=== PATIENT | male | born 1955 | race Caucasian/White ===

== ENCOUNTER → 2019-09-03 13:23 | Outpatient (BNVA) | payer MEDICARE, SELFPAY | PROVIDERS: PCP Internal Medicine; Visit Provider Otolaryngology | DX: K14.8 Other diseases of tongue (principal) | CPT/HCPCS: 99204; 99214 ==

== ENCOUNTER 2019-09-21 07:57 | Outpatient (CLI) | payer MEDICARE, SELFPAY ==
--- NOTE | 2019-09-21 08:08 | CT_ITS ---
WS: [id number] CT scan of the neck. Additional two-dimensional coronal and sagittal reconstruction was performed. Clinical Data: NECK MASS, BASE OF TONGUE CANCER Comparison: None. DLP: 2933.[address] scans at [facility] use at least one of these dose optimization techniques: automat ed exposure control; mA and/or kV adjustment per patient size (includes targeted exams where dose is matched to clinical indication); or iterative reconstruction. Findings: No oral masses are seen. No abnormalities of the tongue are visible. No lymphadenopathy is noted. The salivary glands are unremarkable. There is no prevertebral soft tiss ue swelling. The larynx is symmetric. The thyroid gland shows normal enhancement. The floor of the mo uth and parapharyngeal spaces are normal. The oral cavity is unremarkable. The carotid arteries bifurcate normally. There is calcification at the origins of both internal carot id arteries. The cervical spine shows anterior osteoarthritic change from C3-C7 with disc space narro wing at C6-C7. There is posterior longitudinal ligament calcification at C6-C7. The lung apices show no abnormalities. The portions of the intracranial circulation which are seen demonstrate no abnormal ities. No erosion of the skull or skull base is seen. CT/CT neck w con* [id number] Impression: Negative CT scan of the neck. No oral or tongue abnormalities are seen.
[2019-09-21 08:56] LABS: Blood Urea Nitrogen 13 mg/dL (8-23)
[2019-09-21] MEDS: iohexol 300 mg/mL 100 mL Btl IV (09:04)
== END 2019-09-21 07:58 | disposition home or self-care (01) ==
LOC: RADWPI 08:03
PROVIDERS: Radiology Diagnostic Radiology; PCP Internal Medicine; Visit Provider Otolaryngology
DX: C01 Malignant neoplasm of base of tongue (principal); R22.1 Localized swelling, mass and lump, neck
CPT/HCPCS: 70491; 82565; 84520; Q9967

== ENCOUNTER 2019-11-01 10:03 | Outpatient (CLI) | payer MEDICARE, SELFPAY ==
--- NOTE | 2019-11-01 14:37 | N.ONRAD NP_ITS ---
Radiation Oncology New Patient Visit Patient: Jose Alberto Morin MR#: [id number] : 1955> Age: 64> Sex: Male> Dictated by: Dr. Babar Acevedo Date of Service: 11/01/2019 Referring Physician(s) : Dr. 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 Radiotherapy to date: Summary > No prior radiation therapy. 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 He underwent initial biopsy on September 10 followed by resection right neck dissection and radial artery mild cutaneous flap closure on October 16, 2019. We were asked to see him regarding the role of postoperative radiation therapy in his care. Beginning in the summer 2018 he had a crown replaced in his right mouth which resulted in a sharp edge along the tooth line. This caused an oval small ulceration in his right lateral tongue when rubbing on the teeth this was associated with pain it progressively got larger He was ultimately seen by Dr. Ifeanyi VANESSA in [facility] who noted that he had a ulcerated mass in the right tongue. Biopsy on September 13, 2019 revealed well-differentiated keratinizing squamous cell carcinoma. Due to his insurance he ultimately was seen in [facility] by Dr. Carlos Torres. By that time there was rapid growth in the ulcerative lesion associated with increasing pain. He ultimately underwent definitive surgical resection and right neck dissection on October 16, 2019 at that time he had a fascio cutaneous radial arm free flap for reconstruction of the right bashir glossectomy defect. He also had a tracheostomy placed and PEG tube placed at that time. He had a satisfactory surgical recovery and was hospitalized from October 15 through October 25, 2019. Pathology revealed invasive poorly differentiated squamous cell carcinoma measuring 4.6 x 3.6 cm with 11 mm of invasion initial margin and 5-6 o'clock was focally positive reexcision margin at the deep 6:00 margin was free of carcinoma right lymph right neck lymph node dissection from levels 1-3 and 4 revealed none 31 lymph nodes all clear of metastatic disease. Since surgery he is recovering he is able to drink water. A trial of soft food did lead to aspiration thus far. He has nutrition is now utilizing Jevity via his PEG tube. Overall he is improving. Tracheostomy is healing after trach tube was removed. He has no significant oral cavity or tongue pain. Notes less taste but not yet eating orally.. He is scheduled to see Dr. Torres in follow-up again on November 06, 2019. His locally advanced presentation of tongue carcinoma was presented to the tumor conference in [place] on October 22, 2019 at that time adjuvant radiation adjuvant postoperative radiation therapy was recommended. Current Medications: lisinopril Allergies: Penicillin V Potassium. Medical History: - Hypertension. No history of collagen vascular disease. No previous radiation therapy. Surgical History: Hernia repair Family History: Father is alive. Mother is . Brother is at age 61. Social History: Last screened on 11/01/2019 - Yes - but has quit for 21 years. Smoked 1.0 pack/day for less than one year. Last screened on 11/01/2019 - Drinks occasionally 4 drinks/day 7 days/week. Patient indicated use of the following products: chewing tobacco and cigarettes. Chewed tobacco for 7 years. ([id number]). Social history he lives independently alone. He was in 2004. He has 1 daughter with him now living in [place] currently with him for recovery support. He has another son living in [place]. 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 He is occasional drinker of beer. He renovated a house recently and enjoys gardening and woodworking. Current Complaints / Review of Systems: Constitutional - Complains of fatigue and change in weight in which he is down 30 lbs. in about 2 months time. Denies fever and night sweats. Patient is NPO at this time. Has a feeding tube and puts in 6 cans of Jevity. Eyes - Complains of blurred vision with small print. ENMT - Complains of mouth dryness occasionally. Denies dysphagia, ear pain, problems with hearing, stomatitis, altered taste and tinnitus. Neck - Complains of decreased range of motion. Denies neck pain and swelling of the neck. Integumentary - Has skin grafts on the left forearm and left thigh. Cardiovascular - Complains of edema in the left forearm and ankles. Denies arrhythmias and chest pain. Respiratory - Complains of cough in the mornings. Denies dyspnea, hemoptysis, hiccoughs and wheezing. Gastrointestinal - Denies abdominal pain, constipation, diarrhea, heartburn / dyspepsia, melena / GI bleeding, nausea and vomiting. Genitourinary (M) - Complains of nocturia gets up 4 to 5 times at night. Denies dysuria, frequency and urgency. Musculoskeletal - Denies bone pain, joint pain and muscle weakness. Neurologic - Complains of intermittent dizziness. Denies abnormal gait and headaches. Endocrine - Denies diabetes and thyroid disease. Hematologic/Lymphatic - Denies tender or enlarged lymph nodes.. Vital Signs: Performed on 11/01/2019 10:47 AM BMI - 48.516 kg/m2 (high), Height - 56.00 in, Weight - 216.4 lbs, Temperature - 98.2 f, Pulse - 82, Respiration - 18, O2 Sat - 97 %, Pain - 2 and BP - 122/ 73 mm(hg). Physical Exam: Pleasant gentleman in no acute distress. He had voice changes from his tethered tongue. H EENT examination revealed excellent dentition with stable restorations. Oral tongue revealed well vascularized flap with hair present with good healing along its periphery along the tongue border sutures remain in place Neck revealed healing surgical change in the right neck with no palpable adenopathy in either neck. Tracheostomy was closed down to a slit. Lungs clear to auscultation. Heart regular without murmur or gallop. Abdominal examination revealed healthy-appearing PEG tube in the central upper abdomen no hepatomegaly masses felt. Left arm was bandaged for healing from previous surgical harvesting. Left thigh was bandaged also for healing from previous split thickness graft harvesting. Performance Status: 2 - Ambulatory/capable of all self-care, unable to perform any work activities. Up and about more than 50% of waking hours. (ECOG) Pathology: See HPI Lab: No current lab seen at this evaluation. Imaging: Preoperative CT neck 09/21/2019 was unremarkable but metallic artifact in oral cavity obscured visualization of oral tongue. Small non pathologic sized lymph nodes in both neck regions on my review. Preoperative CT Chest 09/27/2019 mildly enlarged para tracheal lymph nodes to 1.2 cm in size with no clear evidence for metastatic disease and no lung nodules seen on my review. Impression: For pathologic st HIRAL(T4 N0 M0) grade 3 invasive squamous cell carcinoma of the right ventral oral tongue. He has undergone complete resection with vascular flap closure. He is week healing well postoperatively. I recommend a total of 4 to 6-week postoperative convalescence. Following this I recommend adjuvant radiation therapy T is tongue resection bed with generous margin. He has had high risk features for local recurrence that include tumor size high-grade histology and deep tongue invasion. I outlined the rationale for adjuvant radiation in his care with the patient and his daughter. He will return to Dr. Torres for follow-up as scheduled on November 05 we will anticipate scheduling him here for follow-up and simulation approximately 4 to 5 weeks from the time of surgery. Plan: Signed by: 11/01/2019 2:36:23 PM <<Signature on File>> Time spent with patient: 60 min CPT Code: CPT Code:
== END 2019-11-01 10:04 | disposition home or self-care (01) ==
PROVIDERS: PCP Internal Medicine; Referring Provider Otolaryngology; Visit Provider Radiology Radiation Oncology
DX: C02.9 Malignant neoplasm of tongue, unspecified (principal); Z98.890 Other specified postprocedural states
CPT/HCPCS: 99205

== ENCOUNTER 2019-11-28 09:07 | Outpatient (CLI) | payer MEDICARE, SELFPAY ==
--- NOTE | 2019-11-28 14:55 | ONCRAD EPV_ITS ---
Radiation Oncology Established Patient Visit Patient: Antwan MR#: [id number] : 1955> Age: 64> Sex: Male> Dictated by: Dr. Babar Acevedo Date of Service: 11/28/2019 Referring Physician(s) : Diagnosis: C02.9 - Malignant neoplasm of tongue, unspecified, Diagnosed 11/01/2019 (Active) Stage GARRETT, T4a, pN0, M0 Radiotherapy to Date: none Chief Complaint / History of Present Illness: He underwent right hemiglossectomy and left radial arm myocutaneous flap reconstruction on October 16, 2019. Since last seen in initial consultation here the swelling in his tongue is decreased he has less tingling at the tip of his tongue. He maintains his nutrition orally. His PEG tube is not used as yet. He had a follow-up with his plastic surgeon in the last week which was satisfactory. He notes that there is a ridge along the right tongue which interferes with his teeth on the right side. He has no oral cavity pain. Current Medications: Chlorhexidine Gluconate, lisinopril. Allergies: Penicillin V Potassium. Current Complaints / Review of Systems: Constitutional - Complains of night sweats which occur every night. Complains of change in weight in which he is down 13.8 lbs. since seen on 11/01/2019. Denies lack of appetite, fatigue and fever. Eyes - Denies blurred vision. ENMT - Complains of mouth dryness. Denies dysphagia, ear pain, problems with hearing, stomatitis, altered taste and tinnitus. Has been having tingling on the tongue off and on. Neck - Denies neck pain and decreased range of motion. Integumentary - Denies rash. Cardiovascular - Denies arrhythmias, chest pain and edema. Respiratory - Complains of cough occasionally. Denies dyspnea, hemoptysis, hiccoughs and wheezing. Gastrointestinal - Denies abdominal pain, constipation, diarrhea, heartburn / dyspepsia, melena / GI bleeding, nausea and vomiting. Genitourinary (M) - Complains of nocturia gets up about 3 times per night. Denies dysuria, frequency and urgency. Musculoskeletal - Denies bone pain, joint pain and muscle weakness. Neurologic - Denies dizziness, abnormal gait and headaches. Endocrine - Denies diabetes and thyroid disease. Hematologic/Lymphatic - Denies tender or enlarged lymph nodes.. Vital Signs: Performed on 11/28/2019 9:38 AM BMI - 45.422 kg/m2 (high), Height - 56.00 in, Weight - 202.6 lbs, Temperature - 97.7 f, Pulse - 90, Respiration - 18, O2 Sat - 97 %, Pain - 0 and BP - 143/ 80 mm(hg)(high/). Physical Exam: General: Alert and oriented x 3. No acute distress. H EENT examination revealed healthy-appearing myocutaneous flap in the right and central tongue. Swelling of the flap had decreased in size adjacent to the flap there was a ridge of mucosal tissue 2 cm by 0.3 cm firm and nontender. Neck revealed no palpable adenopathy. Abdominal examination revealed a healthy appearing PEG tube site. Tracheostomy site was nearly closed with a small area of granular tissue at the closed stoma site. Left forearm graft was well healed. Performance Status: Lab: None pending. Pathology: Primary, c02.9 - malignant neoplasm of tongue, unspecified, Diagnosed 11/01/2019 (active) stage garrett, t4a, pn0, m0. Impression: He has resected stage Garrett (T4 N0 M0) squamous cell carcinoma of the oral tongue. He is doing well postoperatively. I am concerned about the ridge of tissue now present in the right lateral tongue adjacent to the flap. This may reflect postoperative scarring alone yet it may reflect residual malignancy. At this time I recommend follow-up with his head and neck surgeon for reevaluation within the next week to assess the findings along the right lateral tongue. He will also return to his dentist for dental clearance and possible tooth extraction. We will to plan to have him return here on the week of December 09 for reassessment and possible simulation for the initiation of adjuvant radiation treatment. Signed by: 11/28/2019 1:09:12 PM <<Signature on File>> Time spent with patient: CPT Code: CPT Code:
== END 2019-11-28 09:08 | disposition home or self-care (01) ==
LOC: ONCMED 09:12
PROVIDERS: PCP Family Medicine; Visit Provider Radiology Radiation Oncology
DX: C02.9 Malignant neoplasm of tongue, unspecified (principal); K14.8 Other diseases of tongue
CPT/HCPCS: 99214

== ENCOUNTER 2019-12-25 06:51 | Outpatient (RCR) | payer MEDICARE, SELFPAY ==
--- NOTE | 2019-12-11 | CT_ITS ---
Radiation Therapy Planning CT images; total exam DLP: 902.65 mGy-cm MTDD
--- NOTE | 2019-12-11 17:51 | ONCRAD EPV_ITS ---
Radiation Oncology Established Patient Visit Patient: Antwan MR#: [id number] : 1955> Age: 64> Sex: Male> Dictated by: Dr. Kirk Yousif Date of Service: 12/11/2019 Referring Physician(s) : Diagnosis: C02.9 - Malignant neoplasm of tongue, unspecified, Diagnosed 11/01/2019 (Active) Stage HIRAL, T4a, pN0, M0 Radiotherapy to Date: none Chief Complaint / History of Present Illness: Mr. Morin saw Dr. Acevedo 11/28/2019. He was concerned about a ridge of tissue in the area of his oral cavity graft. In addition he wanted him to see his dentist for dental clearance prior to proceeding with simulation for radiation. Mr. Morin returned to Dr. Hu's office and had a biopsy of the indurated tissue performed. He informs us that result is negative. We will need to obtain the pathology report to confirm that. However, Mr. Morin is an excellent historian and I am sure that the result is negative. Mr. Morin saw his dentist and [place]. He was examined. He does not feel that any extractions are indicated. He is going to make fluoride trays tomorrow. He has also given the patient special toothpaste to use. Mr. Morin comes in at this time for simulation. Current Medications: Chlorhexidine Gluconate, lisinopril, multivitamin Adults. Allergies: Penicillin V Potassium. Current Complaints / Review of Systems: Constitutional - Denies lack of appetite, fatigue, fever, night sweats and change in weight. Eyes - Denies blurred vision. ENMT - Complains of mouth dryness occasionally at night. Denies dysphagia but has odynophagia, ear pain, problems with hearing, stomatitis, altered taste and tinnitus. Neck - Denies neck pain and decreased range of motion. Integumentary - Denies rash. Cardiovascular - Denies arrhythmias, chest pain and edema. Respiratory - Complains of cough occasionally. Denies dyspnea, hemoptysis, hiccoughs and wheezing. Gastrointestinal - Denies abdominal pain, constipation, diarrhea, heartburn / dyspepsia, melena / GI bleeding, nausea and vomiting. Genitourinary (M) - Denies dysuria, frequency and urgency. Musculoskeletal - Denies bone pain and joint pain. Neurologic - Denies dizziness and headaches. Endocrine - Denies diabetes and thyroid disease. Hematologic/Lymphatic - Denies tender or enlarged lymph nodes.. Vital Signs: Performed on 12/11/2019 2:26 PM BMI - 46.185 kg/m2 (high), Height - 56.00 in, Weight - 206.0 lbs, Temperature - 98.8 f, Pulse - 80, Respiration - 18, O2 Sat - 99 %, Pain - 0, Fatigue - 0 and BP - 143/ 91 mm(hg)(high). Physical Exam: General: Alert and oriented x 3. No acute distress. HEENT: Normocephalic, atraumatic. Extraocular Movements Intact: Oral cavity is clear without lesions, masses or ulcers. The graft involving the right two thirds of the anterior tongue appears healthy. No lesions seen or palpated. No suspicious induration detected today. The oropharynx was clear. NECK: Supple without supraclavicular or jugular lymphadenopathy. Surgical scar is well-healed. No lymphedema. Performance Status: 1 - No physically strenuous activity, but ambulatory and able to carry out light or sedentary work (e.g. office work, light house work). (ECOG) Lab: None pending. Pathology: Primary, c02.9 - malignant neoplasm of tongue, unspecified, Diagnosed 11/01/2019 (active) stage hiral, t4a, pn0, m0. Imaging: See HPI ImpReady to proceed with simulation. Mr. Morin ask about 4 weeks of radiation instead of 6 weeks . I discussed that we do not have data available to make a valid judgment of about the effectiveness of 4 weeks of radiation. I discussed with him that 6 weeks is the standard in this situation. I discussed the planned course of treatment. I discussed the immobilization with a mask and the simulation and treatment planning process. I then reviewed side effects in detail. I discussed the acute problems such as painful mucositis, xerostomia, and loss of taste. I discussed the gradual improvement of xerostomia in most patients. I discussed that taste typically improves more quickly. I discussed the risk of trismus. Also I reviewed the possibility of loss of range of motion in the neck requiring physical therapy. I discussed hypothyroidism. Mr. Morin wishes to proceed on with treatment. Simulation will be performed today Signed by: 12/11/2019 5:49:43 PM <<Signature on File>> Time spent with patient: CPT Code: CPT Code:
--- NOTE | 2019-12-25 13:26 | ONCRAD TMN_ITS ---
Radiation Oncology Weekly Treatment Management Patient: Jose Alberto Morin MR#: [id number] : 1955 Age: 64 Sex: Male Dictated by: Dr. Hakeem Yousif Date of Service: 12/25/2019 Referring Physician(s) : Diagnosis: C02.9 - Malignant neoplasm of tongue, unspecified, Diagnosed 11/01/2019 (Active) Stage HIRAL, T4a, pN0, M0 Radiotherapy to date: Course: HN 2019, Treatment Site: HN 44Gy, Ref. ID: [id number], Energy: 6X, Dose/Fx (cGy): 200, #Fx: , Dose Correction (cGy): 0, Total Dose (cGy): 1,200, Start Date: 12/17/2019, Elapsed Days: 8 Chief Complaint/History of Present Illness: Tumor dose 1200 cGy in 6 fractions. Mr. Mar is eating well. Taste has been altered since surgery because of the loss of a significant portion of his tongue. There has been no recent change. He is noticing dry mouth. This past weekend he had some discomfort with swallowing in the right side of his throat and also had pain deep to the right ear. The symptoms have diminished without intervention.. Also in palpating his neck he felt that an area of firmness had migrated posteriorly from the submental area. Current Medications: Chlorhexidine Gluconate, lisinopril, multivitamin Adults. Allergies: Penicillin V Potassium. Current Complaints/Review of Systems: Constitutional - Denies lack of appetite, fatigue, fever and night sweats. ENMT - Complains of dysphagia over the weekend on the right side. Feels a hard knot on the left lower jaw. Complains of ear pain on the right side. Complains of mouth dryness over the weekend and yesterday. Complains of altered taste to the right side of the tongue. Denies stomatitis. Neck - Denies neck pain and decreased range of motion. Integumentary - Has no redness to the neck. Respiratory - Denies hiccoughs. Vital Signs: Performed on 12/25/2019 11:55 AM BMI - 46.364 kg/m2 (high), Height - 56.00 in, Weight - 206.8 lbs, Temperature - 98.0 f, Pulse - 66, Respiration - 18, O2 Sat - 98 %, Pain - 4 and BP - 122/ 75 mm(hg). Physical Exam: Appears stable, no skin erythema or desquamation. No skin reaction at this time. He may have slightly more submental edema than he had prior to the start of treatment. The incisions on his right neck are intact. No lymphadenopathy or masses detected on palpation. Examination of the oral cavity reveals the graft to be stable. No mucositis, yeast or viral ulcerations seen. Performance Status: 1 - No physically strenuous activity, but ambulatory and able to carry out light or sedentary work (e.g. office work, light house work). (ECOG) Lab: None pending in Radiation Oncology. Imaging: No new diagnostic imaging was performed since the last weekly treatment visit. All radiation therapy related imaging (including but not limited to kV, MV, and CBCT generated images) was reviewed. Appropriate changes, if any, were made to assure accurate target localization. Impression/Plan: Tolerating treatment well with expected side effects. Continue treatment as planned. Discussed the risk of submental edema and fibrosis in the neck requiring physical therapy. For now he is satisfied providing his own physical therapy for the lymphedema. If he starts to lose ground, he will speak up for a referral. We discussed the anticipated sore throat and the difficulty with swallowing that may develop. He is aware of trying to keep up a good intake of calories and fluids. He has a feeding tube if needed. CPT: 24098 Signed by: Dr. Hakeem Yousif>12/25/2019 1:24:57 PM <<Signature on File>>
== END 2019-12-25 23:59 | disposition home or self-care (01) ==
LOC: ONCMED 06:51
PROVIDERS: PCP Family Medicine; Visit Provider Specialist
DX: Z51.0 Encounter for antineoplastic radiation therapy (principal); C02.9 Malignant neoplasm of tongue, unspecified; E03.9 Hypothyroidism, unspecified; I10 Essential (primary) hypertension
CPT/HCPCS: 77014; 77263; 77300; 77301; 77334; 77338; 77386

== ENCOUNTER 2020-01-25 06:51 | Outpatient (RCR) | payer MEDICARE, SELFPAY ==
--- NOTE | 2020-01-01 19:30 | ONCRAD TMN_ITS ---
Radiation Oncology Weekly Treatment Management Patient: Jose Alberto Morin MR#: [id number] : 1955 Age: 64 Sex: Male Dictated by: Dr. Master Maldonado Date of Service: 01/01/2020 Referring Physician(s) : Diagnosis: C02.9 - Malignant neoplasm of tongue, unspecified, Diagnosed 11/01/2019 (Active) Stage HIRAL, T4a, pN0, M0 Radiotherapy to date: Course: HN 2019, Treatment Site: HN 44Gy, Ref. ID: [id number], Energy: 6X, Dose/Fx (cGy): 200, #Fx: , Dose Correction (cGy): 0, Total Dose (cGy): 2,000, Start Date: 12/17/2019, Elapsed Days: 15 Chief Complaint/History of Present Illness: The patient reports that he is using his PEG tube and he is supplementing his meals with 3 cans of Jevity as well as Ensure. His weight is stable. He also reports xerostomia, and he feels like his tongue is swollen. The patient is concerned about his oral pain and he is currently managing this with ibuprofen. Furthermore, the patient shares that he wishes to discontinue radiotherapy. Current Medications: Chlorhexidine Gluconate, lisinopril, multivitamin Adults. Allergies: Penicillin V Potassium. Current Complaints/Review of Systems: Vital Signs: Physical Exam: Appears stable, no skin erythema or desquamation. . Oral cavity examination reveals no evidence of oral mucositis or oral thrush. Performance Status: 1 - No physically strenuous activity, but ambulatory and able to carry out light or sedentary work (e.g. office work, light house work). (ECOG) Lab: None pending in Radiation Oncology. Imaging: No new diagnostic imaging was performed since the last weekly treatment visit. All radiation therapy related imaging (including but not limited to kV, MV, and CBCT generated images) was reviewed. Appropriate changes, if any, were made to assure accurate target localization. Impression/Plan: Today, we had a rather candid discussion regarding the patient's initial desires to discontinue radiation therapy. The patient was informed that if he discontinues radiotherapy and does not complete its full course, he will put himself at significant risk for disease recurrence and reduce his expected overall survival. The patient shared that he would continue to consider further radiotherapy at the present time and decide at a later date if he will indeed cease treatment. He was offered opiate pain medication, but the patient declined and shared that he would prefer to continue taking ibuprofen twice per day. For the time being, we will continue treatment as planned. CPT: 32407 Signed by: Dr. Master Maldonado>01/01/2020 7:28:23 PM <<Signature on File>>
--- NOTE | 2020-01-08 16:51 | ONCRAD TMN_ITS ---
Radiation Oncology Weekly Treatment Management Patient: Jose Alberto Morin MR#: [id number] : 1955> Age: 64> Sex: Male Dictated by: Dr. Master Maldonado Date of Service: 01/08/2020 Referring Physician(s) : Diagnosis: C02.9 - Malignant neoplasm of tongue, unspecified, Diagnosed 11/01/2019 (Active) Stage HIRAL, T4a, pN0, M0 Radiotherapy to date: Course: HN 2019, Treatment Site: HN 44Gy, Ref. ID: [id number], Energy: 6X, Dose/Fx (cGy): 200, #Fx: , Dose Correction (cGy): 0, Total Dose (cGy): 2,800 Interim history: The patient reports that his appetite is good but he is mostly using his PEG tube. He reports mouth sores, and his weight is down 2.6 pounds. Current Medications: Ibuprofen, lisinopril, multivitamin Adults. Allergies: Penicillin V Potassium. Current Complaints/Review of Systems: Vital Signs: Performed on 01/08/2020 12:05 PM BMI - 45.736 kg/m2 (high), Height - 56.00 in, Weight - 204.0 lbs, Temperature - 97.6 f, Pulse - 67, Respiration - 18, O2 Sat - 98 %, Pain - 0 and BP - 117/ 76 mm(hg). Physical Exam: Mild erythema of the neck is appreciated without desquamation. Oral cavity examination reveals no evidence of oral mucositis or oral thrush. Performance Status: 2 - Ambulatory/capable of all self-care, unable to perform any work activities. Up and about more than 50% of waking hours. (ECOG) Lab: None pending in Radiation Oncology. Imaging: No new diagnostic imaging was performed since the last weekly treatment visit. All radiation therapy related imaging (including but not limited to kV, MV, and CBCT generated images) was reviewed. Appropriate changes, if any, were made to assure accurate target localization. Impression/Plan: Tolerating treatment well with expected side effects. Continue treatment as planned. CPT: 26233 Signed by: Dr. Master Maldonado>01/08/2020 4:49:39 PM <<Signature on File>>
--- NOTE | 2020-01-16 12:08 | ONCRAD TMN_ITS ---
Radiation Oncology Weekly Treatment Management Patient: Jose Alberto Morin MR#: [id number] : 1955> Age: 64> Sex: Male Dictated by: Dr. Master Maldonado Date of Service: 01/15/2020 Referring Physician(s) : Diagnosis: C02.9 - Malignant neoplasm of tongue, unspecified, Diagnosed 11/01/2019 (Active) Stage HIRAL, T4a, pN0, M0 Radiotherapy to date: Course: HN 2019, Treatment Site: HN 44Gy, Ref. ID: [id number], Energy: 6X, Dose/Fx (cGy): 200, #Fx: , Dose Correction (cGy): 0, Total Dose (cGy): 3,600, Start Date: 12/17/2019, Elapsed Days: 29 Interim history: The patient reports that he has moderate dry mouth, he has not been using his PEG tube, and he is consuming his nutrition by blending up his food. The patient reports that his pain is well controlled. The patient is also adamant that he wants his PEG tube out. Current Medications: Acetaminophen, hYDROcodone-Acetaminophen, ibuprofen, lisinopril, multivitamin Adults. Allergies: Penicillin V Potassium. Current Complaints/Review of Systems: Constitutional - Denies lack of appetite, fatigue, fever, night sweats and change in weight. Has not been using the PEG tube since the weekend. ENMT - Complains of moderate mouth dryness. Complains of stomatitis in the same area as last week. Denies dysphagia and ear pain. Neck - Denies neck pain. Integumentary - Has redness and a rash to the neck. Vital Signs: Performed on 01/15/2020 11:41 AM BMI - 45.691 kg/m2 (high), Height - 56.00 in, Weight - 203.8 lbs, Temperature - 97.4 f, Pulse - 74, Respiration - 16, O2 Sat - 97 %, Pain - 0 and BP - 118/ 81 mm(hg). Physical Exam: Bright erythema is appreciated on the bilateral neck, there is no evidence of skin desquamation. Oral cavity examination reveals no evidence of thrush, or mucositis. Performance Status: 1 - No physically strenuous activity, but ambulatory and able to carry out light or sedentary work (e.g. office work, light house work). (ECOG) Lab: None pending in Radiation Oncology. Imaging: All radiation therapy related imaging (including but not limited to kV, MV, and CBCT generated images) was reviewed. Appropriate changes, if any, were made to assure accurate target localization. 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 Pathology revealed a tumor size of 4.6 mm invading to a depth of 11 mm. Post surgical margins were widely negative, and there was no LVI/PNI. Due to stage and depth of invasion, this patient is at high risk for disease recurrence. The patient is currently planned to receive 44 Gy in 22 fractions without a boost. I have discussed with the patient that choosing to cease his radiation therapy after just 44 Gy in 22 fractions instead of the recommended 60 Gy in 30 fractions may can cause him to have recurrence of his cancer and a reduction in overall survival. The patient expressed understanding that if he elects not to agree with 6 weeks of radiation, then he is doing so against medical advice at the risk of the cancer coming back and at the risk that his survival will be reduced. The patient verbally expressed understanding and repeated his understanding in his own words. Furthermore, he re-iterated that he wanted his PEG tube out. The patient shared that he would decide next week. Furthermore, I explained to the patient that his practice of only coming to 4 treatments per week can also lead to decreased control. He was advised to adhere to the 5 day per week schedule. With regards to his request to remove his peg tube, I shared that I would offer a recommendation for its removal upon completion of radiation therapy, and upon documentation that he can maintain or improve his weight for two weeks while consuming nutrition and hydration orally and without aspiration or peg tube dependence. We await he decision for subsequent planning. CPT: 17423 Signed by: Dr. Master Maldonado>01/16/2020 12:07:02 PM <<Signature on File>>
--- NOTE | 2020-01-23 08:36 | ONCRAD TMN_ITS ---
Radiation Oncology Weekly Treatment Management Patient: Jose Alberto Morin MR#: [id number] : 1955 Age: 64 Sex: Male Dictated by: Dr. Master Maldonado Date of Service: 01/22/2020 Referring Physician(s) : Diagnosis: C02.9 - Malignant neoplasm of tongue, unspecified, Diagnosed 11/01/2019 (Active) Stage HIRAL, T4a, pN0, M0 Radiotherapy to date: Course: HN 2019, Treatment Site: HN 44Gy, Ref. ID: [id number], Energy: 6X, Dose/Fx (cGy): 200, #Fx: , Dose Correction (cGy): 0, Total Dose (cGy): 4,400, Start Date: 12/17/2019, End Date: 01/21/2020, Elapsed Days: 35 Course: HN 2019, Treatment Site: HN [id number], Ref. ID: [id number], Energy: 6X, Dose/Fx (cGy): 200, #Fx: , Dose Correction (cGy): 0, Total Dose (cGy): 200, Start Date: 01/22/2020, Elapsed Days: 0 Interim history: The patient is seen as part of his regular scheduled weekly on treatment visits. He complains of progressive fatigue, discomfort in his oral cavity, and skin irritation. Current Medications: Acetaminophen, hYDROcodone-Acetaminophen, hYDROcodone-Acetaminophen, ibuprofen, lisinopril, multivitamin Adults. Allergies: Penicillin V Potassium. Current Complaints/Review of Systems: Constitutional - Complains of change in weight in which is weight is down 3.8 lbs. since last OTV. He is not using his PEG tube right now.. Denies lack of appetite, fatigue, fever and night sweats. ENMT - Complains of mouth dryness and altered taste. Denies dysphagia, ear pain and stomatitis. Has a burning sensation to the right side of the tongue. Neck - Denies neck pain and decreased range of motion. Integumentary - Has dry desquamation to the neck. Vital Signs: Performed on 01/22/2020 12:04 PM BMI - 45.019 kg/m2 (high), Height - 56.00 in, Weight - 200.8 lbs, Temperature - 97.6 f, Pulse - 64, Respiration - 16, O2 Sat - 96 %, Pain - 3 and BP - 119/ 73 mm(hg). Physical Exam: Appears stable, no skin erythema or desquamation. Performance Status: 1 - No physically strenuous activity, but ambulatory and able to carry out light or sedentary work (e.g. office work, light house work). (ECOG) Lab: None pending in Radiation Oncology. Imaging: All radiation therapy related imaging (including but not limited to kV, MV, and CBCT generated images) was reviewed. Appropriate changes, if any, were made to assure accurate target localization. Impression/Plan: Tolerating treatment well with expected side effects. Continue treatment as planned. CPT: 80119 Signed by: Dr. Master Maldonado>01/23/2020 8:34:51 AM <<Signature on File>>
== END 2020-01-25 23:59 | disposition home or self-care (01) ==
LOC: ONCMED 06:51
PROVIDERS: PCP Family Medicine; Visit Provider Radiology Radiation Oncology
DX: Z51.0 Encounter for antineoplastic radiation therapy (principal); C02.9 Malignant neoplasm of tongue, unspecified; L58.0 Acute radiodermatitis; Y84.2 Radiological procedure and radiotherapy as the cause of abnormal reaction of the patient, or of later complication, without mention of misadventure at the time of the procedure; Z93.1 Gastrostomy status
CPT/HCPCS: 77300; 77336; 77338; 77386

== ENCOUNTER 2020-02-11 05:51 | Outpatient (RCR) | payer MEDICARE, SELFPAY ==
--- NOTE | 2020-01-29 18:16 | ONCRAD TMN_ITS ---
Radiation Oncology Weekly Treatment Management Patient: Jose Alberto Morin MR#: [id number] : 1955> Age: 64> Sex: Male Dictated by: Dr. 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 Pathology revealed a tumor size of 4.6 mm invading to a depth of 11 mm. Post surgical margins were widely negative, and there was no LVI/PNI. Due to stage and depth of invasion, this patient is at high risk for disease recurrence. Treatment Plan: The patient initially declined to receive 60 Gy in 30 fractions of adjuvant radiation. Instead, he opted against medical advice to receive only 22 fractions (i.e., 44Gy). After further consultation, he agreed to 60 Gy in 30 fractions. The radiation plan was thus altered to provide the appropriate dose of the primary operative bed and optimize/adequately cover at risk lymph node regions. Radiotherapy to date: Course: 2019, Treatment Site: HN 44Gy, Ref. ID: [id number], Energy: 6X, Dose/Fx (cGy): 200, #Fx: , Dose Correction (cGy): 0, Total Dose (cGy): 4,400, Start Date: 12/17/2019, End Date: 01/21/2020, Elapsed Days: 35 2019, Treatment Site: HN [id number], Ref. ID: [id number], Energy: 6X, Dose/Fx (cGy): 200, #Fx: , Dose Correction (cGy): 0, Total Dose (cGy): 200, Start Date: 01/22/2020, End Date: 01/22/2020, Elapsed Days: 0 2019, Treatment Site: HN [id number], Ref. ID: [id number], Energy: 15X/6X, Dose/Fx (cGy): 200, #Fx: , Dose Correction (cGy): 0, Total Dose (cGy): 1,000, Start Date: 01/23/2020, Elapsed Days: 6 Reason for visit: The patient is being seen today as part of their regularly scheduled weekly on treatment visits to assess for acute toxicities of radiotherapy. Interim History: The patient's weight is stable, he reports persistent odynophagia and he complains of sores on the left side of his tongue. Current Medications: Acetaminophen, hYDROcodone-Acetaminophen, hYDROcodone-Acetaminophen, ibuprofen, lisinopril, multivitamin Adults, predniSONE. Allergies: Penicillin V Potassium. Current Complaints/Review of Systems: Constitutional - Denies lack of appetite, fatigue, night sweats and change in weight. ENMT - Complains of dysphagia that comes and goes, mouth dryness, stomatitis on the left side of the tongue and on the right side on the flap and altered taste. Denies ear pain. Neck - Denies neck pain and decreased range of motion. Integumentary - Has desqumation to the neck. Vital Signs: Performed on 01/29/2020 11:47 AM BMI - 45.019 kg/m2 (high), Height - 56.00 in, Weight - 200.8 lbs, Temperature - 98.0 f, Pulse - 75, Respiration - 18, O2 Sat - 97 %, Pain - 0 and BP - 133/ 77 mm(hg). Physical Exam: Bilateral neck erythema is appreciated without desquamation. There is no evidence of oral thrush. However, the patient has oral mucositis on the bilateral tongue (right greater than left due to metallic dental work). Performance Status: 1 - No physically strenuous activity, but ambulatory and able to carry out light or sedentary work (e.g. office work, light house work). (ECOG) Lab: None pending in Radiation Oncology. Imaging: Radiation therapy imaging related to accurate target localization (i.e. KV, MV and CBCT) was reviewed. Appropriate changes, if any, were made to ensure treatment accuracy. Plan: The patient is tolerating therapy reasonably well. Radiotherapy will continue as planned. Pain optimization prescription changes were offered, yet the patient declined. Following completion of treatment, we shared that we would evaluate removal of his PEG tube on February 10. For the duration of treatment, the patient has not utilized his PEG tube for nutritional supplementation. CPT: 67436 Signed by: Dr. Master Maldonado>01/29/2020 6:14:59 PM <<Signature on File>>
== END 2020-02-25 23:59 | disposition home or self-care (01) ==
LOC: ONCMED 05:51
PROVIDERS: PCP Family Medicine; Visit Provider Radiology Radiation Oncology
DX: Z51.0 Encounter for antineoplastic radiation therapy (principal); C02.9 Malignant neoplasm of tongue, unspecified
CPT/HCPCS: 77336; 77386

== ENCOUNTER 2020-04-07 06:06 | Outpatient (CLI) | payer MEDICARE, SELFPAY ==
--- NOTE | 2020-04-10 12:05 | ONCRAD EPV_ITS ---
Radiation Oncology Established Patient Visit Patient: Mikel Abrams [id number] : 1955> Age: 64> Sex: Male> Dictated by: Dr. 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 Pathology revealed a tumor size of 4.6 mm invading to a depth of 11 mm. Post surgical margins were widely negative, and there was no LVI/PNI. Due to stage and depth of invasion, this patient is at high risk for disease recurrence. Treatment rendered: The patient initially declined to receive 60 Gy in 30 fractions of adjuvant radiation. Instead, he opted against medical advice to receive only 22 fractions (i.e., 44Gy). After further consultation, he agreed to 60 Gy in 30 fractions. The radiation plan was thus altered to provide the appropriate dose of the primary operative bed and optimize/adequately cover at risk lymph node regions. The patient received 60 Gy in 30 fractions (completed 01/31/2020). Current History: The patient is self-referred today for follow-up for concerns of disease recurrence in his oral cavity. Physical examination today reveals slowly healing mucositis. Current Medications: Acetaminophen, hYDROcodone-Acetaminophen, hYDROcodone-Acetaminophen, ibuprofen, lisinopril, multivitamin Adults. Allergies: Penicillin V Potassium. Current Complaints / Review of Systems: Constitutional - Complains of change in weight which he is down 5.6 lbs. since last seen on 02/11/20. Denies lack of appetite, fatigue, fever and night sweats. Eyes - Denies blurred vision and double vision. ENMT - Complains of ear pain on the right side. Complains of mouth dryness. Complains of stomatitis on the right side of the lower jaw. Complains of altered taste. Denies dysphagia, problems with hearing and tinnitus. Has a burning sensation on his tongue that is worse at night. Neck - Complains of neck pain on the right side and decreased range of motion. Denies neck masses and swelling of the neck. Integumentary - Denies rash. Cardiovascular - Denies arrhythmias, chest pain and edema. Respiratory - Denies cough, dyspnea, hiccoughs and wheezing. Gastrointestinal - Denies abdominal pain, constipation, diarrhea, heartburn / dyspepsia, melena / GI bleeding, nausea and vomiting. Genitourinary (M) - Complains of nocturia gets up about 2 times per night. Denies dysuria, frequency and urgency. Musculoskeletal - Denies bone pain, joint pain and muscle weakness. Neurologic - Complains of headaches but the patient feels like it's from his verterbrae from being out of adjustment. Denies disorientation, dizziness and abnormal gait. Endocrine - Denies diabetes and thyroid disease. Hematologic/Lymphatic - Denies tender or enlarged lymph nodes.. Vital Signs: Performed on 04/07/2020 10:14 AM BMI - 43.539 kg/m2 (high), Height - 56.00 in, Weight - 194.2 lbs, Temperature - 96.9 f, Pulse - 79, Respiration - 18, O2 Sat - 97 %, Pain - 2 and BP - 139/ 78 mm(hg). Physical Exam: General: Alert and oriented x 3. No acute distress. HEENT: Normocephalic, atraumatic. Extraocular Movements Intact: Pupils Equal, Round, Reactive to Light and Accommodation: Sclerae anicteric. Faint oral mucositis is appreciated in the patient's oral cavity. There is no mucosal irregularity or visual lesions on today's examination concerning for disease recurrence. NECK: Supple without supraclavicular or jugular lymphadenopathy. Mild-moderate posttreatment subcutaneous fibrosis is appreciated. LUNGS: Clear to auscultation bilaterally without rales, rhonchi or wheeze. HEART: Regular rate and rhythm, normal S1 and S2 without murmur, gallop or rub. MUSCULOSKELETAL: No tenderness or percussion pain over the axial skeleton, scapulae or pelvis. EXTREMITIES: No peripheral edema is identified. Limited motor and sensory examination are grossly intact and symmetric bilaterally. NEUROLOGIC: Cranial nerves II ???XII are grossly intact. Normal sensation, strength 5/5 in all extremities, normal gait, no ataxia. Performance Status: 0 - Fully active, able to carry on all predisease activities without restrictions. (ECOG) Lab: None pending. Pathology: Primary, c02.9 - malignant neoplasm of tongue, unspecified, Diagnosed 11/01/2019 (active) stage garrett, t4a, pn0, m0. 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 The patient's acute side effects associated with treatment are resolving well, his PEG tube has been removed, and he has no clinical evidence of disease recurrence. I have requested that the patient follow-up with radiation oncology during the second week of April with a CT of the head/neck. In July of 2020, I recommend beginning to follow this patient's TSH every 6 months. Signed by: 04/10/2020 12:03:07 PM <<Signature on File>> Time spent with patient: CPT Code: CPT Code:
== END 2020-04-07 06:07 | disposition home or self-care (01) ==
LOC: ONCMED 06:07
PROVIDERS: PCP Family Medicine; Visit Provider Radiology Radiation Oncology
DX: C02.9 Malignant neoplasm of tongue, unspecified (principal)

== ENCOUNTER 2020-05-26 15:07 | Outpatient (CLI) | payer MEDICARE, SELFPAY ==
--- NOTE | 2020-05-26 15:51 | ONCRAD EPV_ITS ---
Radiation Oncology Established Patient Visit Patient: Mikel Abrams [id number] : 1955> Age: 64> Sex: Male> Dictated by: Dr. 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 Pathology revealed a tumor size of 4.6 mm invading to a depth of 11 mm. Post surgical margins were widely negative, and there was no LVI/PNI. Due to stage and depth of invasion, this patient is at high risk for disease recurrence. Vital Signs: Performed on 05/26/2020 2:03 PM BMI - 42.149 kg/m2 (high), Height - 56.00 in, Weight - 188.0 lbs, Temperature - 98.7 f, Pulse - 73, Respiration - 18, O2 Sat - 98 %, Pain - 15 (high) and BP - 171/ 95 mm(hg)(high). Physical Exam: The oral cavity demonstrated a right sided tongue graft without ulceration or induration. There were no buccal abnormalities noted. I did not palpate any submandibular, submental, or cervical adenopathy. The patient's complaints cannot be explained by physical examination. He is scheduled for PET/CT restaging in May will be evaluated by the co founder and director post scans. I provided a prescription for oxycodone 5 mg as needed. Signed by: 05/26/2020 3:50:36 PM <<Signature on File>> CPT Code: CPT Code:
== END 2020-05-26 15:08 | disposition home or self-care (01) ==
LOC: ONCMED 15:10
PROVIDERS: PCP Family Medicine; Visit Provider Radiology Radiation Oncology
DX: C02.9 Malignant neoplasm of tongue, unspecified (principal); Z98.890 Other specified postprocedural states; Z79.891 Long term (current) use of opiate analgesic
CPT/HCPCS: 99213

== ENCOUNTER 2020-08-19 14:11 | Outpatient (CLI) | payer MEDICARE, SELFPAY | END 2020-08-19 14:12 | disposition home or self-care (01) | PROVIDERS: PCP Family Medicine; Visit Provider Thoracic Surgery (Cardiothoracic Vascular Surgery) | DX: T86.821 Skin graft (allograft) (autograft) failure (principal); Y83.2 Surgical operation with anastomosis, bypass or graft as the cause of abnormal reaction of the patient, or of later complication, without mention of misadventure at the time of the procedure | CPT/HCPCS: 97597; 97598; G0463 ==

== ENCOUNTER 2020-08-22 13:07 | Outpatient (CLI) | payer MEDICARE, SELFPAY | END 2020-08-22 13:08 | disposition home or self-care (01) | LOC: WOUND 13:10 | PROVIDERS: PCP Family Medicine; Visit Provider Surgery | DX: T86.821 Skin graft (allograft) (autograft) failure (principal) | CPT/HCPCS: G0463 ==

== ENCOUNTER 2020-08-27 13:19 | Outpatient (CLI) | payer MEDICARE, SELFPAY | END 2020-08-27 13:20 | disposition home or self-care (01) | LOC: WOUND 13:26 | PROVIDERS: PCP Family Medicine; Visit Provider Thoracic Surgery (Cardiothoracic Vascular Surgery) | DX: T81.89XA Other complications of procedures, not elsewhere classified, initial encounter (principal) | CPT/HCPCS: 11043; 11046 ==

== ENCOUNTER 2020-08-28 09:38 | Outpatient (CLI) | payer MEDICARE, SELFPAY ==
--- NOTE | 2020-08-28 17:54 | ONC CON_ITS ---
Dr. Creon New Patient Note Patient: Jose Alberto Morin Unit #: [id number]: 1955 Dicatated By: Marco Ceron M.D.Date of Visit: Aug 28, 2020 Onc MED New Patient/Consult Referring Physician: Chief Complaint: Oral tongue cancer. 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 He had presented in August 2019 with a sore on the right side of the tongue. He was seen by Dr. Ifeanyi Gan in [place] and a biopsy of the lesion on 09/11/2019 showed well differentiated keratinizing squamous cell carcinoma. He was referred to Dr. Torres in [place]. On 10/16/2019 he underwent right hemiglossectomy, modified right neck dissection, tracheostomy, and PEG tube placement. He also underwent reconstruction of the oral cavity and tongue defect with microvascular radial forearm free flap and split thickness skin graft. Pathology showed invasive poorly differentiated squamous cell carcinoma measuring 4.6 cm in greatest dimension. Initially there was focal involvement at the 6:00 margin, but after reexcision the final margin was free of carcinoma. There was no involvement in a total of 31 lymph nodes. Final staging was HIRAL (pT4a, pN0, M0). Due to the depth of invasion and high risk of recurrence, he was given postop radiation. He completed treatment on 01/31/2020 to a total dose of 6000 cGy administered in 30 fractions. Restaging PET/CT on 06/04/2020 showed a soft tissue focus of marked increased metabolic activity in the right floor of the mouth. The lesion measured 3.1 x 2.8 cm with maximum SUV 9.29. There was mild increase in paratracheal lymphadenopathy, felt to be reactive. The findings were consistent with recurrent tumor in the right floor of the mouth with no evidence of metastatic involvement. On 07/22/2020 he underwent right composite resection with hemiglossectomy and floor of mouth with suprahyoid neck dissection, tracheostomy placement, and PEG tube placement. Pathology on the tongue/floor of mouth showed recurrent poorly differentiated squamous cell carcinoma measuring 4.9 cm. Tumor was noted to involve the medial, lateral, and posterior soft tissue margins. He is seen now in regard to adjuvant chemotherapy. He has been feeling pretty good generally. He has been going to wound care clinic, and his skin graft has been gradually healing. He still has fairly limited activity, but he is walking. His ECOG score is 2. His appetite has been okay. He is tolerating 8 cans of tube feeding daily. His weight has dropped a pound since surgery. He does not have fever or night sweats. He does not complain of shortness of breath, cough, or chest pain. He was having nausea, that is well controlled now with medication. He does complain that his bowels are runny. Bladder function has been okay. He has no significant joint or bone pain. He does not complain of headache. He has occasional lightheadedness. He has no focal neurologic symptoms. Past Medical History: His medical history includes hypertension and squamous cell carcinoma of oral tongue. Past Surgical History: On 10/16/2019 he underwent right hemiglossectomy with right modified neck dissection, reconstruction of the oral cavity and tongue defect with microvascular left radical forearm free flap and split-thickness skin graft, tracheostomy, and PEG tube placement. On 07/22/2020 he underwent right composite resection with hemiglossectomy and floor of mouth with a suprahyoid neck dissection, tracheostomy, and PEG tube placement. His only other surgery was a right inguinal hernia repair. Medications: Acetaminophen 1 (325 mg) Tablet Oral q 4 hours PRN, Cefdinir 1 Capsule (of 300 mg) Oral b.i.d., Dakins (full strength) 1 Applicator (of 0.5 %) Solution Topical t.i.d., Duragesic-100 1 Patch(es) (of 100 mcg/hr) Patch 72 Hr Transdermal q 72 hours, Ensure Original 2 Can Liquid Oral t.i.d., Flagyl 1 Tablet (of 500 mg) Oral t.i.d., Florastor Capsule Oral, Gabapentin 250 mg (of 25 mg/mL) Suspension Oral b.i.d., Lisinopril 1 Tablet (of 40 mg) Tablet Oral daily, Multivitamin Adults 1 Tablet Oral daily, oxyCODONE HCl 1 Tablet (of 15 mg) Oral q 6 hours PRN, Reglan 1 Tablet (of 5 mg) Oral q 6 hours Allergies: Penicillin V Potassium Social History: Mr. Morin is single. 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 He has very limited smoking history, up to 1 pack of cigarettes daily but for only 6 months during 1985. He does have some alcohol use, estimated has a few beers weekly. Family History: Father is alive but heatlh status in unknown. Mother had some kind of intestinal cancer . Brother had mesothelioma and at age 61. Review Of Symptoms: Constitutional - He has had decline in energy and activity tolerance. He is up and about and he is walking. Appetite is okay. He tolerates 8 cans of tube feeding daily. His weight, though, has dropped 10 pounds since surgery. He has no fever or night sweats. ECOG score is 2, Eyes - No change in vision, ENMT - No hearing loss or tinnitus. No sinus congestion/drainage. He has some soreness in the mouth, but it is getting better. No sore throat. He is not able to swallow, Hematologic/Lymphatic - No abnormal bruising or bleeding, Respiratory - No shortness of breath. No cough. No pleuritic pain or hemoptysis, Cardiovascular - No angina pain. No palpitations, Gastrointestinal - He has nausea but it is controlled with medication. No heartburn or acid reflux. He complains that his bowels are runny. No blood in the stool or black stools, Genitourinary (M) - No dysuria or hematuria. No urinary frequency. No urgency or incontinence, Musculoskeletal - No joint or bone pain, Integumentary - He has a skin lesion on the left ear that he is concerned about, Neurologic - No headache. He occasionally has lightheadedness. No numbness or tingling. No other focal neurologic symptoms, Psychiatric - No anxiety or depression. No insomnia. Vital Signs: Performed on Aug 28, 2020 10:48: 0, 0, 36.36 (HIGH), 1.62 sq.m, 56.00 in, 98 %, 88 /min, 18 /min, 134/78 mm(hg), 98.1 F (LOW), and 162.2 lbs (LOW). Physical Examination: Neck - There is soft tissue swelling and masslike induration along the right mandible extending down into the right side of the neck. There is no obvious tumor mass noted and there is no cervical adenopathy noted, Constitutional - He looks pretty good generally, Eyes - Sclerae nonicteric. Conjunctivae clear, ENMT - No lesions noted in the oral cavity, Hematologic/Lymphatic - No clavicular or axillary adenopathy, Respiratory - Lungs are clear with good air movement bilaterally, Cardiovascular - Heart rhythm is regular. There is no murmur, gallop, or rub noted, Abdomen - Soft and non-tender. Liver and spleen are not enlarged. There is no abdominal mass or ascites noted and there is no inguinal adenopathy, Back/Spine - No spine or CVA tenderness noted, Extremities - No edema, Integumentary - There is a small, raised actinic lesion on the helix of the left ear, Neurologic - No focal neurologic deficits noted. Problem List: 1. Poorly differentiated squamous cell carcinoma involving the oral tongue with local recurrence following initial surgical resection and postop radiation. He underwent right composite resection with hemiglossectomy and floor of mouth with suprahyoid neck dissection, tracheostomy placement, and PEG tube placement on 07/22/2020. Pathology on the tongue/floor of mouth showed recurrent poorly differentiated squamous cell carcinoma measuring 4.9 cm. Tumor was noted to involve the medial, lateral, and posterior soft tissue margins. 2. Hypertension. Problems Addressed with this Encounter and Plan: 1. Poorly differentiated squamous cell carcinoma involving the oral tongue with local recurrence following initial surgical resection and postop radiation. He underwent right composite resection with hemiglossectomy and floor of mouth with suprahyoid neck dissection, tracheostomy placement, and PEG tube placement on 07/22/2020. Pathology on the tongue/floor of mouth showed recurrent poorly differentiated squamous cell carcinoma measuring 4.9 cm. Tumor was noted to involve the medial, lateral, and posterior soft tissue margins. The pathology results were reviewed with the patient. He is aware that he is at high risk for further recurrence. He is being seen for consideration of adjuvant chemotherapy. Per NCCN guidelines, there is no standard recommended treatment regimen for this situation with local recurrence which has been resected following previous surgery/radiation. As such, I am going to consult with Dr. Sacha Bonilla at [facility], and I will arrange for referral there as indicated. 2. Due to the extensive nature of his surgery, he has been on opiate pain medication for postoperative pain. It has been well controlled on a fentanyl patch at 100 mcg/h. We are going to now try tapering to 75 mcg/h. He still has oxycodone available to use as needed. Signed By: Marco Ceron M.D. <<Signature on File>>
== END 2020-08-28 09:39 | disposition home or self-care (01) ==
LOC: ONCMED 09:43
PROVIDERS: PCP Family Medicine; Visit Provider Internal Medicine Medical Oncology
DX: C02.8 Malignant neoplasm of overlapping sites of tongue (principal); I10 Essential (primary) hypertension; G89.18 Other acute postprocedural pain; Z93.0 Tracheostomy status; Z92.3 Personal history of irradiation; Z93.1 Gastrostomy status; Z79.891 Long term (current) use of opiate analgesic
CPT/HCPCS: 99215

== ENCOUNTER 2020-09-03 10:38 | Outpatient (CLI) | payer MEDICARE, SELFPAY | END 2020-09-03 10:39 | disposition home or self-care (01) | LOC: WOUND 10:39 | PROVIDERS: PCP Family Medicine; Visit Provider Thoracic Surgery (Cardiothoracic Vascular Surgery) | DX: T81.89XA Other complications of procedures, not elsewhere classified, initial encounter (principal); Y83.8 Other surgical procedures as the cause of abnormal reaction of the patient, or of later complication, without mention of misadventure at the time of the procedure | CPT/HCPCS: 11042; 11045 ==

== ENCOUNTER 2020-09-11 09:20 | Outpatient (CLI) | payer MEDICARE, SELFPAY | END 2020-09-11 09:21 | disposition home or self-care (01) | LOC: WOUND 09:22 | PROVIDERS: PCP Family Medicine; Visit Provider Nurse Practitioner Family | DX: T81.89XA Other complications of procedures, not elsewhere classified, initial encounter (principal) | CPT/HCPCS: 11042; 11045 ==

== ENCOUNTER 2020-09-17 09:50 | Outpatient (CLI) | payer MEDICARE, SELFPAY | END 2020-09-17 09:51 | disposition home or self-care (01) | LOC: WOUND 09:50 | PROVIDERS: PCP Family Medicine; Visit Provider Thoracic Surgery (Cardiothoracic Vascular Surgery) | DX: T81.89XA Other complications of procedures, not elsewhere classified, initial encounter (principal) | CPT/HCPCS: 11042; 11045 ==

== ENCOUNTER 2020-09-24 08:42 | Outpatient (RCR) | payer MEDICARE, SELFPAY | END 2020-09-24 23:59 | disposition home or self-care (01) | LOC: WOUND 08:42 | PROVIDERS: PCP Family Medicine; Visit Provider Thoracic Surgery (Cardiothoracic Vascular Surgery) | DX: L98.492 Non-pressure chronic ulcer of skin of other sites with fat layer exposed (principal) | CPT/HCPCS: 11042; 11045 ==

== ENCOUNTER 2020-09-30 07:48 | Outpatient (CLI) | payer MEDICARE, SELFPAY ==
--- NOTE | 2020-09-30 08:08 | CT_ITS ---
WS: [id number] CT NECK WITH CONTRAST HISTORY: MALIGNANT NEOPLASM OF TONGUE, UNSPECIFIED STAGE HIRAL TECHNIQUE: Contiguous 5 mm axial images are performed through the neck with intravenous contrast. Sag ittal and coronal reformats are also submitted. All CT scans at [facility] use at least o ne of these dose optimization techniques: automated exposure control; mA and/or kV adjustment per pat ient size (includes targeted exams where dose is matched to clinical indication); or iterative recons truction. CONTRAST: CONTRAST: Omnipaque 300; 95 mL IV. DLP: 2477.76 mGycm COMPARISON: 06/12/2020, 09/21/2019 Status post hemiglossectomy with floor of the mouth and suprahyoid neck dissection. Reconstruction of the oral cavity is been also performed. In the resection site at the RIGHT lateral tongue base in th e suprahyoid location is peripherally enhancing soft tissue mass measuring 2.4 x 1.7 cm. Mild lobular peripheral enhancement. Central tumor is not enhancing and is necrotic. There are numerous surgical sutures at this site. There is mild infiltration of the soft tissue fat from the resection flap which is probably due to radiation. As compared to 06/12/2020 which is the most recent study the soft tiss ue area of enhancement has actually decreased. Since 06/12/2020 patient has undergone additional surg ical resection. The peripherally enhancing soft tissue mass may be a postoperative resection site but with a lobulated margin as I suspect this is probably recurrent or persistent/residual tumor. Mildly prominent lymph node measuring 8 mm just lateral to the proximal jugular vein above the clavicle. Ad ditional enhancing but indeterminate lymph nodes at level IIa on the LEFT measures 9 mm. No compromis e of the airway although there is mild distortion. No significant adenopathy on the LEFT neck. There is an additional area of mixed density and peripheral enhancement in the midline just above the hyoid bone measuring 2.1 x 1.5 cm. This has not been seen on prior studies. Lung apices are clear. CT/CT neck w con* [id number] IMPRESSION: 1. Peripherally enhancing soft tissue mass centered in the RIGHT suprahyoid so ft tissue at the site of prior extensive neck resection. This mass measures 2.4 x 1.7 cm and is suspicious for recurrent or residual tumor. Significant improv ement since 06/12/2020. This could potentially be a postoperative soft tissue c ollection. 2. Additional midline suprahyoid peripherally enhancing mass measures 2.1 x 1. 5 cm. This has not been previously described and is suspicious for new metastat ic disease. 3. Bilateral indeterminate but suspicious lymphadenopathy. 4. Postsurgical changes of hemiglossectomy with floor of the mouth and suprahy oid neck dissection evident. Soft tissue stranding is probably from the prior r adiation.
[2020-09-30 08:31] LABS: Blood Urea Nitrogen 12 mg/dL (8-23); Glomerular Filtration Rate 166.4 mL/min (90-130)
[2020-09-30] MEDS: iohexol 300 mg/mL 100 mL Btl IV (08:38)
== END 2020-09-30 07:49 | disposition home or self-care (01) ==
PROVIDERS: PCP Family Medicine; Visit Provider Internal Medicine Medical Oncology
DX: C02.9 Malignant neoplasm of tongue, unspecified (principal)
CPT/HCPCS: 70491; 82565; 84520; Q9967

== ENCOUNTER 2020-10-01 08:42 | Outpatient (CLI) | payer MEDICARE, SELFPAY | END 2020-10-01 08:43 | disposition home or self-care (01) | LOC: WOUND 08:43 | PROVIDERS: PCP Family Medicine; Visit Provider Thoracic Surgery (Cardiothoracic Vascular Surgery) | DX: T86.821 Skin graft (allograft) (autograft) failure (principal); L98.492 Non-pressure chronic ulcer of skin of other sites with fat layer exposed | CPT/HCPCS: 11042; 11045 ==

== ENCOUNTER 2020-10-03 08:02 | Outpatient (CLI) | payer MEDICARE, SELFPAY ==
--- NOTE | 2020-10-03 08:18 | CT_ITS ---
WS: [id number] CT scan of the chest with IV contrast, additional two-dimensional coronal and sagittal reconstruction was performed. 10/03/2020 Clinical Data: MALIGNANT NEOPLASM OF THE TONGUE Comparison: CT chest, 09/27/2019 DLP: 818.[address] scans at [facility] use at least one of these dose optimization techniques: automat ed exposure control; mA and/or kV adjustment per patient size (includes targeted exams where dose is matched to clinical indication); or iterative reconstruction. Findings: No nodules, masses or effusions are seen. No metastatic lesions are noted. The heart size is normal w ith no pericardial effusion. The pulmonary arterial system and thoracic aorta demonstrate no abnormal ities or dilatations. No pneumonia or pneumothorax is seen. The trachea bifurcates normally into the bronchi. There is no axillary or significant mediastinal adenopathy. The upper abdomen shows no acute changes. There is a gastrostomy tube in the stomach. The bones of th e thorax show no metastatic lesions. Degenerative change of the thoracic vertebral bodies is moderate . CT/CT chest w con* [id number] Impression: Negative CT scan of the chest with IV contrast.
[2020-10-03] MEDS: iohexol 300 mg/mL 100 mL Btl IV (08:37)
== END 2020-10-03 08:03 | disposition home or self-care (01) ==
LOC: RADWPI 08:10
PROVIDERS: PCP Family Medicine; Visit Provider Internal Medicine Medical Oncology
DX: C02.9 Malignant neoplasm of tongue, unspecified (principal)
CPT/HCPCS: 71260; Q9967

== ENCOUNTER 2020-10-08 08:49 | Outpatient (CLI) | payer MEDICARE, SELFPAY | END 2020-10-08 08:50 | disposition home or self-care (01) | LOC: WOUND 08:50 | PROVIDERS: PCP Family Medicine; Visit Provider Nurse Practitioner Family | DX: T86.821 Skin graft (allograft) (autograft) failure (principal); L98.492 Non-pressure chronic ulcer of skin of other sites with fat layer exposed | CPT/HCPCS: G0463 ==

== ENCOUNTER → 2020-10-13 08:44 | Outpatient (BNVA) | payer MEDICARE, SELFPAY | PROVIDERS: PCP Family Medicine; Visit Provider Family Medicine | DX: I10 Essential (primary) hypertension (principal); R35.1 Nocturia; B37.0 Candidal stomatitis; C02.9 Malignant neoplasm of tongue, unspecified | CPT/HCPCS: 80053; 80061; 82043; 84153; 85025 ==

== ENCOUNTER 2020-10-15 09:08 | Outpatient (CLI) | payer MEDICARE, SELFPAY | END 2020-10-15 09:09 | disposition home or self-care (01) | LOC: WOUND 09:10 | PROVIDERS: PCP Family Medicine; Visit Provider Thoracic Surgery (Cardiothoracic Vascular Surgery) | DX: T86.821 Skin graft (allograft) (autograft) failure (principal); L98.492 Non-pressure chronic ulcer of skin of other sites with fat layer exposed | CPT/HCPCS: 11042 ==

== ENCOUNTER 2020-10-27 13:23 | Outpatient (CLI) | payer MEDICARE, SELFPAY ==
--- NOTE | 2020-10-28 08:23 | ONC FU_ITS ---
Dr. Ceron Patient Follow-Up Note Patient: Jose Alberto Morin Unit #: [id number]: 1955 Dicatated By: Marco Ceron M.D.Date of Visit:October 27, 2020 Onc Med Follow-up/Prog Note Chief Complaint: Oral tongue cancer. 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 He had presented in August 2019 with a sore on the right side of the tongue. He was seen by Dr. Ifeanyi Gan in [place] and a biopsy of the lesion on 09/11/2019 showed well differentiated keratinizing squamous cell carcinoma. He was referred to Dr. Torres in [place]. On 10/16/2019 he underwent right hemiglossectomy, modified right neck dissection, tracheostomy, and PEG tube placement. He also underwent reconstruction of the oral cavity and tongue defect with microvascular radial forearm free flap and split thickness skin graft. Pathology showed invasive poorly differentiated squamous cell carcinoma measuring 4.6 cm in greatest dimension. Initially there was focal involvement at the 6:00 margin, but after reexcision the final margin was free of carcinoma. There was no involvement in a total of 31 lymph nodes. Final staging was HIRAL (pT4a, pN0, M0). Due to the depth of invasion and high risk of recurrence, he was given postop radiation. He completed treatment on 01/31/2020 to a total dose of 6000 cGy administered in 30 fractions. Restaging PET/CT on 06/04/2020 showed a soft tissue focus of marked increased metabolic activity in the right floor of the mouth. The lesion measured 3.1 x 2.8 cm with maximum SUV 9.29. There was mild increase in paratracheal lymphadenopathy, felt to be reactive. The findings were consistent with recurrent tumor in the right floor of the mouth with no evidence of metastatic involvement. On 07/22/2020 he underwent right composite resection with hemiglossectomy and floor of mouth with suprahyoid neck dissection, tracheostomy placement, and PEG tube placement. Pathology on the tongue/floor of mouth showed recurrent poorly differentiated squamous cell carcinoma measuring 4.9 cm. Tumor was noted to involve the medial, lateral, and posterior soft tissue margins. I had seen him initially on 08/28/2020. Per NCCN guidelines, there did not appear to be any significant benefit or indication for adjuvant chemotherapy, and I also confirmed that with Dr. Sacha Bonilla at [facility]. As such, I had opted to just follow him with close observation. He was referred to Dr. Ifeanyi Gan for removal of a skin lesion on the helix of his left ear. Pathology showed well differentiated squamous cell carcinoma. The deep margin was positive. In the meantime, I also requested a PD-L1 expression on the June 2020 surgical specimen, and that did come back positive at 30%. His restaging neck CT on 09/21/2019 was negative for further recurrence. A repeat neck CT on 09/30/2020 showed a peripherally enhancing soft tissue mass centered in the right suprahyoid soft tissue at the site of the prior extensive neck resection. It measured 2.4 x 1.7 cm. The appearance was suspicious for recurrent or residual tumor, but there was significant improvement since 06/12/2020, and it was felt to potentially be a postoperative soft tissue collection. An additional midline suprahyoid peripherally enhancing mass measured 2.1 x 1.5 cm. It had not been previously described and it was felt to be suspicious for a new metastatic disease. Bilateral lymphadenopathy was indeterminate but suspicious. Chest CT on 10/03/2020 showed no metastatic disease. He was then seen for followup by Dr. Torres, and he was confirmed to have further local recurrence. His case was presented at tumor board, and it was recommended that he proceed to systemic therapy. He is seen for a followuup visit. He has pretty good energy. He is able to do light work. ECOG score is 1. He is tolerating 7 cans of Ensure Plus daily. His weight is down a couple of pounds. He has no fever or night sweats. His pain in managed with a combination of fentanyl, oxycodone, and gabapentin. He does not complain of shortness of breath, cough, or chest pain. He has no GI complaints. He has urinary frequency and nocturia. He has no other joint or bone pain. He sometimes has a pounding headache. He has no focal neurologic symptoms. Medications: Acetaminophen 1 (325 mg) Tablet Oral q 4 hours PRN, Cefdinir 1 Capsule (of 300 mg) Oral b.i.d., Dakins (full strength) 1 Applicator (of 0.5 %) Solution Topical t.i.d., Duragesic-100 1 Patch(es) (of 100 mcg/hr) Patch 72 Hr Transdermal q 72 hours, Ensure Original 2 Can Liquid Oral t.i.d., Flagyl 1 Tablet (of 500 mg) Oral t.i.d., Florastor Capsule Oral, Gabapentin 300 mg (of 25 mg/mL) Suspension Oral t.i.d., Lisinopril 1 Tablet (of 40 mg) Tablet Oral daily, Multivitamin Adults 1 Tablet Oral daily, oxyCODONE HCl 1 Tablet (of 15 mg) Oral q 6 hours PRN, Reglan 1 Tablet (of 5 mg) Oral q 6 hours Allergies: Penicillin V Potassium Vital Signs: Performed on October 27, 2020 13:34 Weight - 159.2 lbs (LOW) BSA - 0.00 sq.m BMI - 0.00 Temperature - 99.1 F (HIGH) Pulse - 84 /min Respiration - 18 /min BP - 135/80 mm(hg) O2 Sat - 97 % Pain - 8 Fatigue - 0 Physical Examination: Constitutional - He looks pretty good generally, Eyes - Sclerae nonicteric. Conjunctivae clear, ENMT - No lesions noted in the oral cavity, Neck - There is swelling and induration on both sides of the neck, more prominently on the right. There is a small open wound on the right side just below the mandible. There is no discrete mass palpable, and I do not feel any cervical adenopathy, Hematologic/Lymphatic - No clavicular or axillary adenopathy, Respiratory - Lungs are clear with good air movement bilaterally, Cardiovascular - Heart rhythm is regular. There is no murmur, gallop, or rub noted, Abdomen - Soft. The PEG tube site looks good. Liver and spleen are not enlarged. There is no abdominal mass or ascites noted and there is no inguinal adenopathy, Extremities - No edema, Neurologic - No focal neurologic deficits noted. Problem List: 1. Poorly differentiated squamous cell carcinoma involving the oral tongue with local recurrence following initial surgical resection and postop radiation. 2. Hypertension. Problems Addressed with this Encounter and Plan: 1. 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 He then underwent right composite resection with hemiglossectomy and floor of mouth with suprahyoid neck dissection, tracheostomy placement, and PEG tube placement on 07/22/2020. Pathology on the tongue/floor of mouth showed recurrent poorly differentiated squamous cell carcinoma measuring 4.9 cm. Tumor was noted to involve the medial, lateral, and posterior soft tissue margins. It was found to be positive for PD-L1 expression at 30%. He now has documented local recurrence/progression, and he has been recommended to proceed with systemic therapy. I reviewed treatment options with the patient. With a PD-L1 positive tumor, either chemotherapy with cisplatin/5-FU in combination with pembrolizumab or pembrolizumab monotherapy would be appropriate, per NCCN guidelines. I reviewed potential benefits and associated toxicities, and he indicates that he prefers to try the immunotherapy alone. As such, he will now begin treatment with pembrolizumab 200 mg by IV infusion every 3 weeks, subject to verification of insurance coverage. 2. He has ongoing neck area pain following his extensive surgery. It is being managed adequately with a fentanyl patch at 100 mcg/hr together with gabapentin and with immediate release oxycodone as needed. Signed By: Marco Ceron M.D. <<Signature on File>>
== END 2020-10-27 13:24 | disposition home or self-care (01) ==
PROVIDERS: PCP Family Medicine; Visit Provider Internal Medicine Medical Oncology
DX: C02.9 Malignant neoplasm of tongue, unspecified (principal); I10 Essential (primary) hypertension; Z79.899 Other long term (current) drug therapy; Z92.3 Personal history of irradiation
CPT/HCPCS: 99215

== ENCOUNTER 2020-10-29 08:58 | Outpatient (CLI) | payer MEDICARE, SELFPAY | END 2020-10-29 08:59 | disposition home or self-care (01) | LOC: WOUND 08:59 | PROVIDERS: PCP Family Medicine; Visit Provider Thoracic Surgery (Cardiothoracic Vascular Surgery) | DX: T86.821 Skin graft (allograft) (autograft) failure (principal); L98.492 Non-pressure chronic ulcer of skin of other sites with fat layer exposed | CPT/HCPCS: 11042 ==

== ENCOUNTER 2020-11-04 08:18 | Outpatient (CLI) | payer MEDICARE, SELFPAY ==
--- NOTE | 2020-11-04 08:32 | FL_ITS ---
WS: [id number] MODIFIED BARIUM SWALLOW HISTORY: Other dysphagia FLUOROSCOPY TIME: 1.5 minutes. Modified barium swallow was performed by the speech pathologist. Fluoroscopy was provided with the pa tient in a lateral projection. Multiple food consistencies were provided. Nondiagnostic evaluation. Patient was unable to swallow the barium mixture. A very small amount of ba rium trickled into the vallecula. Patient was unable to clear the barium residual. FL/FL barium swallow modifd [id number] IMPRESSION: 1. Nondiagnostic evaluation of swallowing function. 2. Patient was unable to swallow the food consistencies to evaluate swallowing mechanism. Please see speech therapist report also for recommendations.
== END 2020-11-04 08:19 | disposition home or self-care (01) ==
LOC: RAD 08:25
PROVIDERS: PCP Family Medicine; Visit Provider Specialist
DX: R07.0 Pain in throat (principal)
CPT/HCPCS: 74230; 92611

== ENCOUNTER 2020-11-05 09:07 | Outpatient (CLI) | payer MEDICARE, SELFPAY | END 2020-11-05 09:08 | disposition home or self-care (01) | LOC: WOUND 09:08 | PROVIDERS: PCP Family Medicine; Visit Provider Thoracic Surgery (Cardiothoracic Vascular Surgery) | DX: T86.821 Skin graft (allograft) (autograft) failure (principal); L98.492 Non-pressure chronic ulcer of skin of other sites with fat layer exposed | CPT/HCPCS: 11042 ==

== ENCOUNTER 2020-11-05 13:58 | Outpatient (CLI) | payer MEDICARE, SELFPAY ==
[2020-11-05 14:35] LABS: Basophils % 0.5 %; Eosinophils # 0.1 10^3/uL (0.0-0.8); Eosinophils % 1.3 %; Hematocrit 31.6 % (42.0-52.0); Hemoglobin 10.3 g/dL (11.7-16.6); Lymphocytes # 0.7 10^3/uL (0.8-4.8); Lymphocytes % 11.6 %; Mean Corpuscular HGB Conc 32.6 g/dL (30.0-36.0); Mean Corpuscular Hemoglobin 28.4 pg (28.0-34.0); Mean Corpuscular Volume 87.1 fL (80-94); Mean Platelet Volume 9.6 fL (7.4-10.4); Monocytes # 0.6 10^3/uL (0.2-0.9); Monocytes % 9.9 %; Neutrophils # 4.53 10^3/uL (1.8-7.7); Neutrophils % 76.4 %; Nucleated Red Blood Cells % 0 %; Platelet Count 247 10^3/cmm (130-400); Red Blood Count 3.63 10^6/uL (4.1-5.3); Red Cell Distribution Width 13.4 % (12.1-15.1); White Blood Count 5.9 10^3/uL (4.0-10.0)
[2020-11-05 15:01] LABS: Alanine Aminotransferase 13 U/L (0-41); Albumin Level 3.4 g/dL (3.5-5.2); Alkaline Phosphatase 67 IU/L (40-130); Anion Gap 10.4 (5-19); Aspartate Amino Transferase 12 U/L (0-40); Blood Urea Nitrogen 11 mg/dL (8-23); Calcium 8.8 mg/dL (8.5-10.5); Carbon Dioxide 33 mmol/L (22-29); Chloride 88 mmol/L (98-107); Globulin 3.5 g/dL (1.3-4.6); Glomerular Filtration Rate 166.4 mL/min (90-130); Glucose 135 mg/dL (65-115); Osmolality Calculated 265 mOsm/kg (285-295); Potassium 4.4 mmol/L (3.5-5.1); Sodium 127 mmol/L (136-145); Thyroid Stimulating Hormone 0.89 uIU/mL (0.27-4.20); Total Bilirubin 0.2 mg/dL (0.15-1.2); Total Protein 6.9 g/dL (6.6-8.7)
== END 2020-11-05 13:59 | disposition home or self-care (01) ==
PROVIDERS: PCP Family Medicine; Visit Provider Internal Medicine Medical Oncology
DX: Z51.12 Encounter for antineoplastic immunotherapy (principal); C02.9 Malignant neoplasm of tongue, unspecified; I10 Essential (primary) hypertension; Z79.899 Other long term (current) drug therapy
CPT/HCPCS: 80053; 84443; 85025; 96413; J7050; J9271

== ENCOUNTER 2020-11-11 06:00 | Outpatient (CLI) | payer MEDICARE, SELFPAY ==
[2020-11-11 13:01] LABS: Basophils % 0.1 %; Eosinophils % 0.3 %; Hematocrit 33.6 % (42.0-52.0); Hemoglobin 11.3 g/dL (11.7-16.6); Lymphocytes # 0.5 10^3/uL (0.8-4.8); Lymphocytes % 7.2 %; Mean Corpuscular HGB Conc 33.6 g/dL (30.0-36.0); Mean Corpuscular Hemoglobin 27.5 pg (28.0-34.0); Mean Corpuscular Volume 81.8 fL (80-94); Mean Platelet Volume 9.9 fL (7.4-10.4); Monocytes # 0.8 10^3/uL (0.2-0.9); Monocytes % 11.4 %; Neutrophils # 5.56 10^3/uL (1.8-7.7); Neutrophils % 80.6 %; Nucleated Red Blood Cells % 0 %; Platelet Count 303 10^3/cmm (130-400); Red Blood Count 4.11 10^6/uL (4.1-5.3); Red Cell Distribution Width 13.2 % (12.1-15.1); White Blood Count 6.9 10^3/uL (4.0-10.0)
[2020-11-11 13:39] LABS: Alanine Aminotransferase 16 U/L (0-41); Albumin Level 3.4 g/dL (3.5-5.2); Alkaline Phosphatase 73 IU/L (40-130); Anion Gap 12.5 (5-19); Aspartate Amino Transferase 14 U/L (0-40); Blood Urea Nitrogen 11 mg/dL (8-23); Calcium 8.8 mg/dL (8.5-10.5); Carbon Dioxide 30 mmol/L (22-29); Chloride 79 mmol/L (98-107); Glomerular Filtration Rate 166.4 mL/min (90-130); Glucose 140 mg/dL (65-115); Osmolality Calculated 246 mOsm/kg (285-295); Potassium 4.5 mmol/L (3.5-5.1); Total Bilirubin 0.3 mg/dL (0.15-1.2); Total Protein 7.4 g/dL (6.6-8.7)
[2020-11-11 13:44] LABS: Sodium 117 mmol/L (136-145)
[2020-11-11] MEDS: ondansetron 2 mg/ML SDV 2 mL 8 MG IVP (15:10)
[2020-11-11] MEDS: famotidine 20 mg/2 mL INJ IVP (15:12)
[2020-11-11] MEDS: sodium chloride 0.9% 1,000 ML 999 ML IV (15:33)
--- NOTE | 2020-11-20 10:30 | ONC FU_ITS ---
[facility] Patient Note Patient: Jose Alberto Morin Unit #: [id number]: 1955 Dictated By: Connie MinayaDate of Visit: November 11, 2020 Onc MED Follow-Up/Prog Note Chief Complaint: Oral tongue cancer. 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 He had presented in August 2019 with a sore on the right side of the tongue. He was seen by Dr. Ifeanyi Gan in [place] and a biopsy of the lesion on 09/11/2019 showed well differentiated keratinizing squamous cell carcinoma. He was referred to Dr. Torres in [place]. On 10/16/2019 he underwent right hemiglossectomy, modified right neck dissection, tracheostomy, and PEG tube placement. He also underwent reconstruction of the oral cavity and tongue defect with microvascular radial forearm free flap and split thickness skin graft. Pathology showed invasive poorly differentiated squamous cell carcinoma measuring 4.6 cm in greatest dimension. Initially there was focal involvement at the 6:00 margin, but after reexcision the final margin was free of carcinoma. There was no involvement in a total of 31 lymph nodes. Final staging was HIRAL (pT4a, pN0, M0). Due to the depth of invasion and high risk of recurrence, he was given postop radiation. He completed treatment on 01/31/2020 to a total dose of 6000 cGy administered in 30 fractions. Restaging PET/CT on 06/04/2020 showed a soft tissue focus of marked increased metabolic activity in the right floor of the mouth. The lesion measured 3.1 x 2.8 cm with maximum SUV 9.29. There was mild increase in paratracheal lymphadenopathy, felt to be reactive. The findings were consistent with recurrent tumor in the right floor of the mouth with no evidence of metastatic involvement. On 07/22/2020 he underwent right composite resection with hemiglossectomy and floor of mouth with suprahyoid neck dissection, tracheostomy placement, and PEG tube placement. Pathology on the tongue/floor of mouth showed recurrent poorly differentiated squamous cell carcinoma measuring 4.9 cm. Tumor was noted to involve the medial, lateral, and posterior soft tissue margins. Dr Ceron had seen him initially on 08/28/2020. Per NCCN guidelines, there did not appear to be any significant benefit or indication for adjuvant chemotherapy, and Dr Ceron also confirmed that with Dr. Sacha Bonilla at [facility]. As such, Dr Ceron had opted to just follow him with close observation. He was referred to Dr. Ifeanyi Gan for removal of a skin lesion on the helix of his left ear. Pathology showed well differentiated squamous cell carcinoma. The deep margin was positive. In the meantime, Dr Ceron had also requested a PD-L1 expression on the June 2020 surgical specimen, and that did come back positive at 30%. His restaging neck CT on 09/21/2019 was negative for further recurrence. A repeat neck CT on 09/30/2020 showed a peripherally enhancing soft tissue mass centered in the right suprahyoid soft tissue at the site of the prior extensive neck resection. It measured 2.4 x 1.7 cm. The appearance was suspicious for recurrent or residual tumor, but there was significant improvement since 06/12/2020, and it was felt to potentially be a postoperative soft tissue collection. An additional midline suprahyoid peripherally enhancing mass measured 2.1 x 1.5 cm. It had not been previously described and it was felt to be suspicious for a new metastatic disease. Bilateral lymphadenopathy was indeterminate but suspicious. Chest CT on 10/03/2020 showed no metastatic disease. He was then seen for followup by Dr. Torres, and he was confirmed to have further local recurrence. His case was presented at tumor board, and it was recommended that he proceed to systemic therapy. Mr Morin was seen by Dr Ceron on seen for a followuup visit October 27, 2020 and offered treatment with either chemotherapy with cisplatin/5-FU in combination with pembrolizumab or pembrolizumab monotherapy (he is a candidate for pembrolizumab due to the PD-L1 expression at 30%). Mr. Morin preferred to try immunotherapy alone at this time. He began his first cycle on November 05, 2020. Mr. Morin is here today for follow-up. He is noted to have a sodium of 117 today. He is weak and washed out. His weight is stable at 159 today compared to October 27, 2020 at which time it was 159.2. His potassium is normal at 4.5 glucose is 114 creatinine is 0.5 and his LFTs are all normal. He states over the last several days he has just been tired and weak and has been hard to get anything down. He states he can get water down but the Ensure Plus has not staying down as well as it has in the past. He reports that on November 05 he had nausea and tiredness but was not able to sleep more than 2 hours and then was wide-awake. He states on November 06 he had vomiting with his at 6:30 AM feeding and had retching after doing water at 10 AM. He states he can do small amounts of Ensure on November 07 and but had vomiting on the evening of November 08. He also states that he had vomiting early Tuesday morning on November 09. He said he had chills on Tuesday as well but his temp was 97.7 his blood pressure was 165/91. The chills were persistent again on Tuesday but his temperature read at 98.6. He had swelling in his right cheek at that time. He is concerned that he is not getting enough fluid down as the Keytruda instructions had told him he needed to drink 2 to 3 quarts of fluid a day. We discussed that given his situation that may be unattainable orally. He denies any mouth sores or pain. He has had no diarrhea. He states that he does urinate quite a bit but no more than what has been normal for him. He denies any new shortness of breath, wheezing, cough or hemoptysis. He denies any orthopnea. He denies any chest pain or palpitations. His ECOG is 2. Past Medical History: Hypertension Squamous cell carcinoma of oral tongue Past Surgical History: Right inguinal hernia repair Right composite resection with hemiglossectomy and floor of mouth with a suprahyoid neck dissection in 2021 Microvascular left radical forearm free flap & spit thinkness skin graft in 2020 PEG tube placement in 2020 Radical modified neck dissection in 2020 Reconstruction of oral cavity & tongue defect in 2020 - right Right hemiglossectomy in 2020 Tracheostomy in 2020 Allergies: Penicillin V Potassium Medications: Acetaminophen 1 (325 mg) Tablet Oral q 4 hours PRN Cefdinir 1 Capsule (of 300 mg) Oral b.i.d. Dakins (full strength) 1 Applicator (of 0.5 %) Solution Topical t.i.d. Duragesic-100 1 Patch(es) (of 100 mcg/hr) Patch 72 Hr Transdermal q 72 hours Duragesic-25 1 Patch(es) (of 25 mcg/hr) Patch 72 Hr Transdermal q 72 hours Ensure Original 2 Can Liquid Oral t.i.d. Flagyl 1 Tablet (of 500 mg) Oral t.i.d. Florastor Capsule Oral Gabapentin 300 mg (of 25 mg/mL) Suspension Oral t.i.d. Lisinopril 1 Tablet (of 40 mg) Tablet Oral daily Multivitamin Adults 1 Tablet Oral daily oxyCODONE HCl 1 Tablet (of 15 mg) Oral q 6 hours PRN Reglan 1 Tablet (of 5 mg) Oral q 6 hours Family History: Mr. Morin's mother is : Other Sites Cancer. Mr. Morin's father is alive. Mr. Morin has 1 brother who is . Father is alive but heatlh status in unknown. Mother had some kind of intestinal cancer . Brother had mesothelioma and at age 61. Social History: Mr. Morin is single. Mr. Morin quit smoking 22 years ago but had smoked 1.0 pack/day for 0 years. He drinks occasionally. He consumes 4 drinks/day 7 days/week. He has indicated exposure to the following products: cigarettes, chewing tobacco, and beer. Chewed tobacco for 8 years ([id number]). He had previously been employed as a mechanic welder truck driver. He has very limited smoking history, up to 1 pack of cigarettes daily but for only 6 months during 1985. He does have some alcohol use, estimated has a few beers weekly. Review Of Symptoms: <See Above> Vital Signs: Performed on November 11, 2020 14:17 Height - 56.00 in Weight - 159 lbs (LOW) BSA - 1.61 sq.m BMI - 35.65 (HIGH) Temperature - 97.3 F (LOW) Pulse - 96 /min Respiration - 17 /min BP - 122/71 mm(hg) O2 Sat - 98 % Pain - 0,2 - Ambulatory/capable of all self-care, unable to perform any work activities. Up and about more than 50% of waking hours. (ECOG) Physical Examination: Constitutional Alert, oriented, no acute distress. Skin pink, warm and dry. Head Normocephalic; atraumatic. Eyes Conjunctivae and sclerae are clear and without icterus. Pupils are reactive and equal. Neck Supple without masses or thyromegaly. No jugular venous distension. Respiratory Lungs are clear to auscultation without rhonchi or wheezing. Cardiovascular Regular rate and rhythm of heart without murmurs,clicks, gallops or rubs. Back/Spine Non-tender to palpation. Extremities No visible deformities, no cyanosis, clubbing or edema. Musculoskeletal No tenderness or swelling, normal range of motion without obvious weakness. Integumentary No rashes or lesions. Neurologic No sensory or motor deficits, normal cerebellar function, normal gait. Psychiatric Alert and oriented times three. Coherent speech. Verbalizes understanding of our discussions today. Laboratory:Test performed on November 11, 2020 12:25 Sodium 117 mmol/L Potassium 4.5 mmol/L Chloride 79 mmol/L CO2 30 mmol/L Anion Gap 12.5 BUN 11 mg/dL Creatinine 0.5 mg/dL Cr Clearance (Est) 148.25 mL/min eGFR 166.4 mL/min Glucose 140 mg/dL Osmolality - Calculated 246 mOsm/kg Calcium 8.8 mg/dL Protein, Total 7.4 g/dL Albumin 3.4 g/dL Globulin 4.0 g/dL Bilirubin, Total 0.3 mg/dL ALT (SGPT) 16 U/L AST (SGOT) 14 U/L Alkaline Phosphatase 73 IU/L WBC 6.9 10 3/uL RBC 4.11 10 6/uL HGB 11.3 g/dL HCT 33.6 % MCV 81.8 fL MCH 27.5 pg MCHC 33.6 g/dL RDW 13.2 % Platelet Count 303 10 3/cmm MPV 9.9 fL Neutrophils 5.56 10 3/uL Lymphocytes 0.5 10 3/uL Monocytes 0.8 10 3/uL Eosinophils 0.0 10 3/uL Basophils 0.0 10 3/uL Neutrophil % 80.6 % Lymphocyte % 7.2 % Monocyte % 11.4 % Eosinophil % 0.3 % Basophils % 0.1 % NRBC % 0 % Test performed on November 05, 2020 14:15 TSH 0.89 uIU/mL Impression: 1. Poorly differentiated squamous cell carcinoma involving the oral tongue with local recurrence following initial surgical resection and postop radiation. 2. Hypertension. Plan/Problems Addressed at this Visit: 1. 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 He then underwent right composite resection with hemiglossectomy and floor of mouth with suprahyoid neck dissection, tracheostomy placement, and PEG tube placement on 07/22/2020. Pathology on the tongue/floor of mouth showed recurrent poorly differentiated squamous cell carcinoma measuring 4.9 cm. Tumor was noted to involve the medial, lateral, and posterior soft tissue margins. It was found to be positive for PD-L1 expression at 30%. He now has documented local recurrence/progression, and he has been recommended to proceed with systemic therapy. Dr Ceron reviewed treatment options with the patient. With a PD-L1 positive tumor, either chemotherapy with cisplatin/5-FU in combination with pembrolizumab or pembrolizumab monotherapy would be appropriate, per NCCN guidelines. Dr Ceron reviewed potential benefits and associated toxicities, and he indicates that he prefers to try the immunotherapy alone. He began his first dose of pembrolizumab on November 05, 2020. A. He has hyponatremia today with a sodium of 117. B. He will receive hydration today with 1 L of normal saline. C. Today's labs were reviewed with Mr. Mar and a copy was given to him. WBC 6.9, hemoglobin 11.3, platelets 303,000 ANC is 5560. Sodium 117 potassium 4.5 random glucose is 140, BUN is 11 creatinine is 0.5 calcium 8.8 albumin 3.4 LFTs are normal his TSH on 11/05/2020 was 0.89. His weight is stable at 159. D. His labs and assessment were discussed with Dr. Ceron resulting in the request to follow. E. I have asked for repeat serum sodium (BMP) today and add urine sodium???random, urine osmolality and repeat TSH. Suspicious for SIADH. F. He will receive hydration daily for the remainder of the week. G. I have asked for serum osmolality and repeat sodium tomorrow 2. Headaches???persistent; nausea vomiting A. Have asked for an MRI of the head with and without contrast for the persistent headaches and nausea vomiting and this patient with extensive head and neck cancer. B. He will receive IV antiemetics here in the clinic today and daily as needed for the nausea vomiting. He may also try utilizing ondansetron 4 to 8 mg ODT every 6-8 hours as needed at home. He is to let us know if this is not working for him. C Refill ondansetron preferably the ODT to [facility]. 3. Pain Management: A. Due to the extensive nature of his surgery, he has been on opiate pain medication for postoperative pain. B. It has been adequately managed with a fentanyl patch at 100 mcg/hr together with gabapentin and with immediate release oxycodone as needed. 4. Follow-up plan A. Repeat CBC CMP week of November 17, 2020. B. He may continue hydration antiemetics as needed. C. Actual follow-up visit to be determined after the MRI of the head. D. He would be due for repeat Keytruda in 2 weeks from this visit. Total time spent on Mr. Noland care today including review of records prior to visit, assessment, review of labs in detail with the patient, discussion of his assessment labs and plan of care with Dr. Ceron, presentation of plan of care to Mr. Morin as well as answering multiple questions with him, coordinating his care today and post visit documentation was 60 minutes. Signed By: Connie Minaya-, [facility] Marco Ceron MD <<Signature on File>>
== END 2020-11-11 06:01 | disposition home or self-care (01) ==
PROVIDERS: PCP Family Medicine; Visit Provider Nurse Practitioner
DX: C02.9 Malignant neoplasm of tongue, unspecified (principal); I10 Essential (primary) hypertension; Z79.899 Other long term (current) drug therapy; Z92.21 Personal history of antineoplastic chemotherapy
CPT/HCPCS: 80053; 85025; 96361; 96365; 96375; 99215; J1100; J2405; J3490; J7030

== ENCOUNTER 2020-11-12 09:11 | Outpatient (CLI) | payer MEDICARE, SELFPAY | END 2020-11-12 09:12 | disposition home or self-care (01) | LOC: WOUND 09:12 | PROVIDERS: PCP Family Medicine; Visit Provider Thoracic Surgery (Cardiothoracic Vascular Surgery) | DX: T86.829 Unspecified complication of skin graft (allograft) (autograft) (principal); L98.492 Non-pressure chronic ulcer of skin of other sites with fat layer exposed | CPT/HCPCS: 11042 ==

== ENCOUNTER 2020-11-19 12:41 | Outpatient (RCR) | payer MEDICARE, SELFPAY ==
[2020-11-12] MEDS: ondansetron 2 mg/ML SDV 2 mL 8 MG IV (14:30)
[2020-11-12] MEDS: famotidine 20 mg/2 mL INJ IVP (14:30)
[2020-11-12] MEDS: sodium chloride 0.9% 1,000 ML 999 ML IV (14:30)
[2020-11-12 15:37] LABS: Anion Gap 14.6 (5-19); Blood Urea Nitrogen 17 mg/dL (8-23); Calcium 9.1 mg/dL (8.5-10.5); Carbon Dioxide 31 mmol/L (22-29); Chloride 87 mmol/L (98-107); Glomerular Filtration Rate 134.8 mL/min (90-130); Glucose 170 mg/dL (65-115); Osmolality Calculated 272 mOsm/kg (285-295); Potassium 4.6 mmol/L (3.5-5.1); Sodium 128 mmol/L (136-145); Thyroid Stimulating Hormone 0.44 uIU/mL (0.27-4.20)
[2020-11-12 16:42] LABS: Urine Random Sodium 11 mmol/L
[2020-11-13] MEDS: famotidine 20 mg/2 mL INJ IVP (14:53)
[2020-11-13] MEDS: sodium chloride 0.9% 1,000 ML 999 ML IV (15:12)
[2020-11-13 16:02] LABS: Osmolality Serum 271 mOsm/kg (278-305)
[2020-11-13 16:02] LABS: Osmolality Urine 169 mOsm/kg (50-1200)
[2020-11-14] MEDS: famotidine 20 mg/2 mL INJ IVP (09:48)
[2020-11-14] MEDS: sodium chloride 0.9% 1,000 ML 999 ML IV (09:48)
[2020-11-18] MEDS: famotidine 20 mg/2 mL INJ IVP (11:05)
[2020-11-18] MEDS: ondansetron 2 mg/ML SDV 2 mL 8 MG IV (11:06)
[2020-11-18] MEDS: sodium chloride 0.9% 1,000 ML 999 ML IV (11:30)
[2020-11-18 11:34] LABS: Basophils % 0.2 %; Eosinophils # 0.1 10^3/uL (0.0-0.8); Eosinophils % 0.7 %; Hematocrit 32.9 % (42.0-52.0); Hemoglobin 10.6 g/dL (11.7-16.6); Lymphocytes # 0.4 10^3/uL (0.8-4.8); Lymphocytes % 3.2 %; Mean Corpuscular HGB Conc 32.2 g/dL (30.0-36.0); Mean Corpuscular Hemoglobin 27.5 pg (28.0-34.0); Mean Corpuscular Volume 85.5 fL (80-94); Mean Platelet Volume 9.6 fL (7.4-10.4); Monocytes # 0.5 10^3/uL (0.2-0.9); Monocytes % 4.1 %; Neutrophils # 11.54 10^3/uL (1.8-7.7); Neutrophils % 91.4 %; Nucleated Red Blood Cells % 0 %; Platelet Count 307 10^3/cmm (130-400); Red Blood Count 3.85 10^6/uL (4.1-5.3); Red Cell Distribution Width 14.3 % (12.1-15.1); White Blood Count 12.6 10^3/uL (4.0-10.0)
[2020-11-18 11:58] LABS: Alanine Aminotransferase 19 U/L (0-41); Albumin Level 3.3 g/dL (3.5-5.2); Alkaline Phosphatase 64 IU/L (40-130); Aspartate Amino Transferase 14 U/L (0-40); Blood Urea Nitrogen 9 mg/dL (8-23); Calcium 8.9 mg/dL (8.5-10.5); Carbon Dioxide 33 mmol/L (22-29); Chloride 91 mmol/L (98-107); Globulin 3.7 g/dL (1.3-4.6); Glomerular Filtration Rate 215.2 mL/min (90-130); Glucose 189 mg/dL (65-115); Osmolality Calculated 272 mOsm/kg (285-295); Sodium 129 mmol/L (136-145); Total Bilirubin 0.3 mg/dL (0.15-1.2)
[2020-11-18 12:23] LABS: Anion Gap 9.2 (5-19); Potassium 4.2 mmol/L (3.5-5.1)
--- NOTE | 2020-11-18 14:22 | CT_ITS ---
WS: [id number] CT NECK WITH CONTRAST HISTORY: ORAL tongue CANCER TECHNIQUE: Contiguous 5 mm axial images are performed through the neck with intravenous contrast. Sag ittal and coronal reformats are also submitted. All CT scans at [facility] use at least o ne of these dose optimization techniques: automated exposure control; mA and/or kV adjustment per pat ient size (includes targeted exams where dose is matched to clinical indication); or iterative recons truction. CONTRAST: CONTRAST: Omnipaque 300; 95 mL IV. DLP: 458.67 mGy.cm COMPARISON: 09/30/2020 Patient is status post extensive prior neck dissection for history of tongue cancer. Prior hemiglosse ctomy with floor of the mouth and suprahyoid neck dissection. Reconstruction of the oral cavity has b een performed. Significant progression of soft tissue enhancement the RIGHT posterior cavity along the palatine tons il. There are multiple small cystic collections with peripheral enhancement noted in the posterior ca vity and extending along the posterior cervical site over the RIGHT neck. Enhancing masses extend deanna ng the RIGHT neck and over the thyroid into the supraclavicular location. There is progressive soft t issue infiltration at the reconstructed neck tissues Multiple enhancing masses with the largest adjacent to the RIGHT hyoid bone measuring 1.6 x 2.3 cm. T here is also involvement of the thyroid gland bilaterally with new nodules. There is mild narrowing a nd deviation of the pharynx. There is abnormal soft tissue extending posterior to the pharynx which i s probably infection or tumor. No intracranial abnormality noted at the lung bases. CT/CT neck w con* [id number] IMPRESSION: 1. Significant progression of abnormal findings throughout the reconstructed n sirena. 2. Numerous peripherally enhancing masses along the RIGHT neck and in the post erior oropharynx into the RIGHT supraclavicular region along with increasing so ft tissue along the RIGHT palatine tonsil. Most consistent with progression of disease. Multifocal abscesses may appear similar. 3. There is mild compromise of the airway in the suprahyoid region. Notified Marco Ceron MD at 11/18/2020 4:01 PM.
[2020-11-18] MEDS: iohexol 300 mg/mL 100 mL Btl IV (14:46)
[2020-11-19] VITALS (7 sets, daily range): RESP 17–19; O2SAT 98–100
[2020-11-19] MEDS: sodium chloride 0.9% 1,000 ML 999 ML IV (13:30)
[2020-11-19] MEDS: ondansetron 2 mg/ML SDV 2 mL 8 MG IV (13:31)
[2020-11-19] MEDS: morphine 4 mg/mL SDV 1 mL 8 MG IVP ×2 (13:39→14:56)
[2020-11-19] MEDS: morphine 4 mg/mL SDV 1 mL IVP ×5 (14:16→16:07)
== END 2020-11-24 23:59 | disposition home or self-care (01) ==
LOC: ONCMED 12:41
PROVIDERS: Nurse Practitioner; PCP Family Medicine; Visit Provider Internal Medicine Medical Oncology
DX: Z51.11 Encounter for antineoplastic chemotherapy (principal); C02.9 Malignant neoplasm of tongue, unspecified; E03.9 Hypothyroidism, unspecified; Z79.52 Long term (current) use of systemic steroids; Z79.899 Other long term (current) drug therapy
CPT/HCPCS: 70491; 80048; 80053; 83930; 83935; 84300; 84443; 85025; 96361; 96365; 96374; 96375; J1100; J2270; J2405; J3490; J7030; Q9967